=== PATIENT | female | born 1950 | race Caucasian/White ===

== ENCOUNTER 2018-04-29 20:11 | Emergency (ER) | payer MEDICARE ==
--- NOTE | 2018-04-29 21:40 | ED ---
General Adult HPI - General Chief complaint: Extremity Problem,Nontraumatic Stated complaint: r arm tingling and numbness x 3 days Source: patient Mode of arrival: ambulatory Limitations: no limitations - History of Present Illness Initial comments: Dictation was produced using [employer] dictation software. please excuse any grammatical, word or spelling errors. Chief Complaint: 68-year-old male who was diagnosed with cervical radiculopathy 2 weeks ago presents with right upper extremity pain History of Present Illness: And is a 68-year-old female past medical history dyslipidemia, hypertension presents with right arm pain. Patient was evaluated 2 weeks ago at an urgent care she was diagnosed with cervical radiculopathy however was having persistent pain despite treatment with Flexeril and corticosteroids. She is given referral to orthopedic surgery. Patient normally resides in [place]. She presents today asking for stronger pain medication. Patient reports that her upper extremity symptoms are only with certain neck movements. Denies any history of stroke. The ROS documented in this emergency department record has been reviewed and confirmed by me. Those systems with pertinent positive or negative responses have been documented in the HPI. All other systems are other negative and/or noncontributory. - Related Data Home Medications Medication Instructions Recorded Confirmed Aspirin EC [Ecotrin Low Dose] 81 mg PO DAILY 04/29/18 04/29/18 Atenolol [Tenormin] 50 mg PO DAILY 04/29/18 04/29/18 Atorvastatin [Lipitor] 10 mg PO DAILY 04/29/18 04/29/18 Cholecalciferol [Vitamin D3] 1,000 unit PO DAILY 04/29/18 04/29/18 Cyclobenzaprine [Flexeril] 10 mg PO TID PRN 04/29/18 04/29/18 Triamterene/Hydrochlorothiazid 1 tab PO DAILY 04/29/18 04/29/18 [Triamterene-Hctz 75-50 mg Tab] methylPREDNISolone Dose Pack See Taper PO DIRECTED 04/29/18 04/29/18 [Medrol Dose Pack] Previous Rx's Medication Instructions Recorded HYDROcodone/APAP 5-325MG [[place] 5] 1 each PO Q6HR PRN #8 tab 04/29/18 Allergies Allergy/AdvReac Type Severity Reaction Status Date / Time Sulfa (Sulfonamide Allergy Rash/Hives Verified 04/29/18 20:52 Antibiotics) RUBBER Allergy Rash/Hives Uncoded 04/29/18 20:52 Review of Systems ROS Statement: Those systems with pertinent positive or pertinent negative responses have been documented in the HPI. ROS Other: All systems not noted in ROS Statement are negative. Past Medical History Past Medical History: Hyperlipidemia, Hypertension History of Any Multi-Drug Resistant Organisms: None Reported Past Surgical History: Cholecystectomy, Hysterectomy Past Psychological History: No Psychological Hx Reported Smoking Status: Never smoker Past Alcohol Use History: Occasional Past Drug Use History: None Reported General Exam - General Exam Comments Initial Comments: PHYSICAL EXAM: General Impression: Alert and oriented x3, not in acute distress HEENT: Normocephalic atraumatic, extra-ocular movements intact, pupils equal and reactive to light bilaterally, mucous membranes moist. Cardiovascular: Heart regular rate and rhythm, S1&S2 audible, no murmurs, rubs or gallops Chest: Lungs clear to auscultation bilaterally, no rhonchi, no wheeze, no rales Abdomen: Bowel sounds present, abdomen soft, non-tender, non-distended, no organomegaly Musculoskeletal: Pulses present and equal in all extremities, no peripheral edema Motor: Power 5/5 bilaterally, no focal deficits noted Neurological: CN II-XII grossly intact, no focal motor or sensory deficits noted Skin: Intact with no visualized rashes Psych: Normal affect and mood Limitations: no limitations Course Vital Signs 04/29/18 20:16 Temperature 98.1 F Pulse Rate 78 Respiratory 18 Rate Blood Pressure 161/83 O2 Sat by Pulse 98 Oximetry Medical Decision Making - Medical Decision Making ED course: 68 year female presents with request for better pain control after being recently diagnosed with cervical radiculopathy. Vital signs upon arrival are within acceptable limits. Patient states that her symptoms began 2 weeks. Discussed with patient that there is some consideration that her symptoms could reflect a stroke. She states she did not want to be worked up for that at the moment. Patient had a cervical spine x- ray performed 2 weeks ago she brought back the results. Patient denies wanting to be worked up for more given that she normally resides in [place] and more extensive testing would require marked pocket pain. Pain is slightly reproduced with right neck side bending and right rotation. Patient does not appear to be in acute distress at this time. She requests when necessary medications for severe pain. Discussed with patient that I can only give her less than 3 supply for narcotics and there is no guarantee that these pain medications worked. She does not want to be CT of her C-spine or be worked up with any further imaging. Patient does not appear to be in acute distress. Physical examination is otherwise fairly benign. Patient given short supply of [place]. She is urged to return back to [place] for further management of radiculopathy. Patient understandable agreeable to this plan. Disposition Clinical Impression: Cervical radiculopathy Disposition: HOME SELF-CARE Condition: Fair Prescriptions: HYDROcodone/APAP 5-325MG [[place] 5] 1 each PO Q6HR PRN #8 tab PRN Reason: Pain Is patient prescribed a controlled substance at d/c from ED?: Yes If prescribed controlled substance>3 days was MAPS reviewed?: Prescribed <3 Days Referrals: Nonstaff,Physician [Primary Care Provider] - 1-2 days Time of Disposition: 21:40
[2018-04-29 22:44] VITALS: BP 165/65; PULSE 75; RESP 20; TEMP 97.3
== END 2018-04-29 21:47 | disposition home or self-care (01) ==
LOC: EC 20:11
DX: M54.12 Radiculopathy, cervical region (principal); E78.5 Hyperlipidemia, unspecified; I10 Essential (primary) hypertension; Z79.82 Long term (current) use of aspirin; Z79.52 Long term (current) use of systemic steroids; Z79.899 Other long term (current) drug therapy; Z88.2 Allergy status to sulfonamides; Z91.048 Other nonmedicinal substance allergy status
CPT/HCPCS: 99283

== ENCOUNTER → 2020-04-11 | Outpatient (CLI) | payer MEDICARE ==
--- NOTE | 2020-04-11 15:49 | BD ---
EXAMINATION TYPE: Axial Bone Density DATE OF EXAM: 04/11/2020 COMPARISON: NONE CLINICAL HISTORY: 70-year-old female postmenopausal screening Height: 5 FT 1 1/2 IN Weight: 170 FRAX RISK QUESTIONS: Alcohol (3 or more units per day): NO Family History (Parent hip fracture): NO Glucocorticoids (More than 3mos): NO (Ex: prednisone, prednisolone, methylprednisolone, dexamethasone, and hydrocortisone). History of Fracture in Adulthood: YES Secondary Osteoporosis: 1. Type 1 Diabetes: NO 2. Hyperthyroidism: NO 3. Menopause before 45: YES 4. Malnutrition: NO 5. Chronic liver disease: NO Rheumatoid Arthritis: NO Current Tobacco Use: NO RISK FACTORS HISTORY OF: Surgery to Spine/Hip(right/left)/Wrist (right/left): C SPINE SURG When: 2019 Active: NO Postmenopausal woman: TOTAL HYST AGE 38 Take estrogen and/or progesterone medications: TOOK HRT 36-50 NO LONGER MEDICATIONS: Additional Medications: INSULIN, LIPITOR, ATENOLOL, FARSEGA, METFORMIN,VIT D3 . ASPIRIN Additional History: EXAM MEASUREMENTS: Bone mineral densitometry was performed using the [employer] System. Bone mineral density as measured about the Lumbar spine is: ----- L1-L4(G/cm2): 1.289 T Score Values are as follows: ----- L2: 0.5 ----- L3: 0.8 ----- L4: 0.4 ----- L1-L4: 0.9 BASELINE Bone mineral density about the R hip (g/cm2): 0.786 Bone mineral density about the L hip (g/cm2): 0.800 T Score values are as follows: -----R Neck: -1.8 -----L Neck: -1.7 -----R Total: -0.7 -----L Total: -0.6 BASELINE IMPRESSION: Osteopenia (T Score between -2.5 and -1). There is slightly increased risk of fracture and the patient may be considered for treatment. Re-Screen 2-5 years. NOTE: T-SCORE=SD OF THE YOUNG ADULT MEAN.
--- NOTE | 2020-04-12 08:35 | MM ---
Reason for exam: screening (asymptomatic). Last mammogram was performed 5 years and 4 months ago. History: Patient is postmenopausal. Family history of breast cancer in paternal grandmother. Took estrogen for 14 years beginning at age 38. Physical Findings: A clinical breast exam by your physician is recommended on an annual basis and results should be correlated with mammographic findings. MG 3D Screening Mammo W/Cad Bilateral CC and MLO view(s) were taken. Prior study comparison: December 16, 2014, mammogram, performed at [place]. There are scattered fibroglandular densities. There are benign appearing round calcifications in the left breast. Asymmetric breast tissue right breast, stable. There is no discrete abnormality. ASSESSMENT: Benign, BI-RAD 2 RECOMMENDATION: Routine screening mammogram of both breasts in 1 year.
== END | disposition home or self-care (01) ==
LOC: RADBDWWP 10:33
PROVIDERS: ATTEND Family Medicine
DX: Z12.31 Encounter for screening mammogram for malignant neoplasm of breast (principal); N95.1 Menopausal and female climacteric states; M81.8 Other osteoporosis without current pathological fracture
CPT/HCPCS: 77063; 77067; 77080

== ENCOUNTER → 2023-02-28 | Outpatient (CLI) | payer MEDICARE ==
--- NOTE | 2023-03-03 18:55 | MM ---
Reason for Exam: Screening (asymptomatic). Last mammogram was performed 2 year(s) and 11 month(s) ago. Patient History: Menarche at age 16. First Full-Term at age 20. Left ovary removed at age 38. Right ovary removed at age 38. Hysterectomy at age 38. Postmenopausal. Estrogen for 14 years from age 38 until age 52. Paternal grandmother had breast cancer. Risk Values: Karen 5 year model risk: 1.1%. NCI Lifetime model risk: 3.3%. Prior Study Comparison: 12/16/2014 Screening Mammogram, [place]. 04/11/2020 Bilateral Screening Mammogram, [facility]. Tissue Density: There are scattered fibroglandular densities. Findings: Analyzed By CAD. Pattern appears symmetrical and stable. No significant interval change. No suspicious groups of microcalcifications, spiculated or lobular masses, architectural distortion or other secondary signs of malignancy are mammographically apparent. Overall Assessment: Benign, BI-RAD 2 Management: Screening Mammogram of both breasts in 1 year. A negative mammogram report should not preclude additional follow up of suspicious palpable abnormalities. Patient should continue monthly self breast exam. A clinical breast exam by your physician is recommended on an annual basis and results should be correlated with mammographic findings. Electronically signed and approved by: Patrick Holt D.O. Radiologis
== END | disposition home or self-care (01) ==
LOC: RADMAMWWP 11:11
PROVIDERS: ATTEND Family Medicine
DX: Z12.31 Encounter for screening mammogram for malignant neoplasm of breast (principal); Z80.3 Family history of malignant neoplasm of breast; Z78.0 Asymptomatic menopausal state
CPT/HCPCS: 77063; 77067

== ENCOUNTER → 2023-09-09 | Outpatient (CLI) | payer MEDICARE ==
--- NOTE | 2023-09-16 01:52 | CT ---
EXAMINATION TYPE: CT abdomen pelvis wo con CT DLP: 907 mGycm, Automated exposure control for dose reduction was used. DATE OF EXAM: 09/09/2023 11:18 AM COMPARISON: CLINICAL INDICATION:Female, 73 years old with history of R10.30 lower abdominal pain; lower abdominal pain and cramping TECHNIQUE: Axial CT of the abdomen and pelvis. Sagittal and coronal reformats were created on a [employer] workstation. Contrast used: mL of , (none if empty) Oral contrast used: without Oral Contrast (none if empty) FINDINGS: Exam is limited by lack of contrast. LOWER CHEST: Mild dependent atelectasis. Heart size is normal with prominent pericardial fat noted. ABDOMEN LIVER: Unremarkable GALLBLADDER AND BILE DUCTS: Gallbladder is not seen, likely absent. No biliary dilatation is suggeste d. PANCREAS: Mild fatty infiltration without acute finding SPLEEN: Unremarkable. ADRENAL GLANDS: Mildly thickened, may be seen with hyperplasia.. KIDNEYS AND URETERS: Trace bilateral perinephric stranding. Relatively low-attenuation 1.4 cm rounded lesion in the upper pole left kidney is not fully characterized but has the appearance of a cyst. No sizable renal calculi bilaterally. No ureteral calculi or hydronephrosis. Pelvic phleboliths are not ed. PELVIS BLADDER: Unremarkable REPRODUCTIVE: The uterus appears absent, correlate for hysterectomy. Ovaries are not seen, could of been removed. No evidence of pelvic mass. ABDOMEN & PELVIS STOMACH AND BOWEL: Stomach and small bowel are nondistended, no evidence of obstruction. Appendix i s not identified with certainty, however there is no inflammatory process seen in the RLQ. Mural fat deposition in the ascending colon may be sequela of previous inflammatory process. There are numerous diverticula seen throughout the colon. Mild strandiness of the pericolonic fat in the sigmoid region is present, nonfocal. PERITONEUM/RETROPERITONEUM: No evidence of pneumoperitoneum or free fluid. VASCULATURE: Moderate atherosclerotic calcifications are present throughout the abdominal aorta and i ts branches. No evidence of aortic aneurysm. LYMPH NODES: No gross evidence for lymphadenopathy. SOFT TISSUE/ABDOMINAL WALL: Postoperative changes with surgical material along the right anterior abd ominal wall. Fat-containing 2.6 x 1.7 cm hernia in the right paraumbilical region with a 0.8 cm neck. MUSCULOSKELETAL: Mild/moderate diffuse degenerative changes. Mild retrolisthesis L5 on S1. This is li ariela at least mild to moderate spinal canal stenosis and moderate bilateral neural foraminal stenoses L5-S1. No clearly acute bony abnormality. IMPRESSION: 1. Limited unenhanced study. 2. No evidence of urinary tract calculi or hydronephrosis. 3. Numerous colonic diverticula. Mild nonspecific pericolonic fat stranding in the proximal sigmoid region could be seen with diverticulitis or focal colitis. Please correlate and follow-up clinically.
== END | disposition home or self-care (01) ==
LOC: RADCTMAIN 10:35
PROVIDERS: ATTEND Family Medicine
DX: K57.30 Diverticulosis of large intestine without perforation or abscess without bleeding (principal); R93.5 Abnormal findings on diagnostic imaging of other abdominal regions, including retroperitoneum
CPT/HCPCS: 74176

== ENCOUNTER 2025-02-25 17:19 | Inpatient (IN) | payer MEDICARE ==
[2025-02-25 17:46] LABS: Appearance,Urine Clear (Clear); Bilirubin,Urine Negative (Negative); Blood,Urine Negative (Negative); Color,Urine Colorless; Glucose,Urine (UA) Negative (Negative); Ketones,Urine Negative (Negative); Leukocyte Esterase,Urine Negative (Negative); Nitrite,Urine Negative (Negative); PH, Urine 6.5 (5.0-8.0); Protein,Urine Negative (Negative); Specific Gravity,Urine 1.003 (1.001-1.035); Urobilinogen,Urine <2.0 mg/dL (<2.0)
--- NOTE | 2025-02-25 18:37 | ED ---
Back Pain HPI - General Chief Complaint: Back Pain/Injury Stated Complaint: urogenital, back pain Time Seen by Provider: 02/25/25 18:35 Source: patient, RN notes reviewed Limitations: no limitations - History of Present Illness Initial Comments: 74-year-old female presenting for bilateral flank pain x 2 days with intermittent dizziness. States she recently was diagnosed with diverticulitis with an abscess and was on 2 antibiotics, metronidazole and another 1 that she cannot remember the name of. States she recently finished those and abdominal pain has improved however she does reports bilateral flank pain and dizziness if she stands for a long period of time. States she wants to get her kidneys checked through her blood today. Denies chest pain, shortness of breath, fevers, abdominal pain, urinary symptoms. Denies cardiac or pulmonary history. Denies renal disease. - Related Data Home Medications Medication Instructions Recorded Confirmed Aspirin EC [Ecotrin Low Dose] 81 mg PO DAILY 04/29/18 02/25/25 Atorvastatin [Lipitor] 20 mg PO HS 02/25/25 02/25/25 Cholecalciferol (Vitamin D3) 50 mcg PO HS 02/25/25 02/25/25 [Vitamin D3 (50 Mcg = 2000 Iu)] Ezetimibe [Zetia] 10 mg PO HS 02/25/25 02/25/25 Folic Acid 1 mg PO DAILY 02/25/25 02/25/25 Losartan [Cozaar] 25 mg PO DAILY 02/25/25 02/25/25 Triamterene/Hydrochlorothiazid 1 tab PO DAILY 02/25/25 02/25/25 [Triamterene-Hctz 37.5-25 mg Tb] atenoloL [Tenormin] 25 mg PO DAILY 02/25/25 02/25/25 Allergies Allergy/AdvReac Type Severity Reaction Status Date / Time Sulfa (Sulfonamide Allergy Rash/Hives Verified 02/25/25 20:43 Antibiotics) RUBBER Allergy Rash/Hives Uncoded 04/29/18 20:52 Review of Systems ROS Statement: Those systems with pertinent positive or pertinent negative responses have been documented in the HPI. ROS Other: All systems not noted in ROS Statement are negative. Past Medical History Past Medical History: Hyperlipidemia, Hypertension History of Any Multi-Drug Resistant Organisms: None Reported Past Surgical History: Cholecystectomy, Hysterectomy Past Psychological History: No Psychological Hx Reported Past Alcohol Use History: Occasional Past Drug Use History: None Reported General Exam Limitations: no limitations General appearance: alert, in no apparent distress Head exam: Present: atraumatic, normocephalic, normal inspection Respiratory exam: Present: normal lung sounds bilaterally. Absent: respiratory distress, wheezes, rales, rhonchi, stridor Cardiovascular Exam: Present: regular rate, normal rhythm, normal heart sounds. Absent: systolic murmur, diastolic murmur, rubs, gallop, clicks GI/Abdominal exam: Present: soft, normal bowel sounds. Absent: distended, tenderness, guarding, rebound, rigid Back exam: Absent: CVA tenderness (R), CVA tenderness (L) Neurological exam: Present: alert, oriented X3 Psychiatric exam: Present: normal affect, normal mood Skin exam: Present: warm, dry, intact, normal color. Absent: rash Course Vital Signs 02/25/25 02/25/25 02/25/25 17:22 21:21 22:21 Temperature 97.8 F 98.1 F Pulse Rate 72 67 69 Respiratory 16 16 16 Rate Blood Pressure 144/76 140/75 144/65 O2 Sat by Pulse 98 98 99 Oximetry Medical Decision Making - Medical Decision Making Was pt. sent in by a medical professional or institution (, PA, LEAVE COORDINATOR, urgent care, hospital, or prison...) When possible be specific @ -No Did you speak to anyone other than the patient for history (EMS, parent, family, police, friend...)? What history was obtained from this source @ -No Did you review nursing and triage notes (agree or disagree)? Why? @ -I reviewed and agree with nursing and triage notes Were old charts reviewed (outside hosp., previous admission, EMS record, old EKG, old radiological studies, urgent care reports/EKG's, prison records)? Report findings @ -No old charts were reviewed Differential Diagnosis (chest pain, altered mental status, abdominal pain women, abdominal pain men, vaginal bleeding, weakness, fever, dyspnea, syncope, headache, dizziness, GI bleed, back pain, seizure, CVA, palpatations, mental health, musculoskeletal)? @ -Differential Abdominal Pain Women: Appendicitis, Cholecystitis, diverticulosis, ischemic bowel, pancreatitis, hepatitis, UTI, gastroenteritis, AAA, incarcerated hernia, bowel obstruction, constipation, inflammatory bowel, hepatitis, peptic ulcer disease, splenic infarction, perforated viscus, vulvitis, ovarian torsion, PID, kidney stone, placenta abruption, this is not meant to be an all-inclusive list EKG interpreted by me (3pts min.). @ -As above X-rays interpreted by me (1pt min.). @ -None done CT interpreted by me (1pt min.). @ -None done U/S interpreted by me (1pt. min.). @ -None done What testing was considered but not performed or refused? (CT, X-rays, U/S, labs)? Why? @ -None What meds were considered but not given or refused? Why? @ -None Did you discuss the management of the patient with other professionals (professionals i.e. , PA, LEAVE COORDINATOR, lab, RT, psych nurse, oncology social work, director emergency department, teacher, consumer safety officer, manager of case)? Give summary @ -I spoke with Dr. Hartman who accepts admission for hyponatremia. I then notified Dr. Antoine on-call farm crew leader who agrees with plan of care and requests repeat BMP at 2300 Was smoking cessation discussed for >3mins.? @ -No Was critical care preformed (if so, how long)? @ -No Were there social determinants of health that impacted care today? How? (Homelessness, low income, unemployed, alcoholism, drug addiction, t ransportation, low edu. Level, literacy, decrease access to med. care, half-way, rehab)? @ -No Was there de-escalation of care discussed even if they declined (Discuss DNR or withdrawal of care, Hospice)? DNR status @ -No What co-morbidities impacted this encounter? (DM, HTN, Smoking, COPD, CAD, Cancer, CVA, ARF, Chemo, Hep., AIDS, mental health diagnosis, sleep apnea, morbid obesity)? @ -None Was patient admitted / discharged? Hospital course, mention meds given and route, prescriptions, significant lab abnormalities, going to OR and other pertinent info. @ -Admitted. 74-year-old female presenting for bilateral flank pain with intermittent dizziness x 2 days. Patient is currently asymptomatic. Alert and oriented x 3. Lab work remarkable for hyponatremia of 113. Urinalysis unremarkable. Urine sodium and urine osmolality sent. Repeat BMP shows sodium of 114. Patient was started on sodium chloride IV fluids and will be admitted to medicine with nephrology consultation with repeat BMPs every 4 hours. Fluid restriction to 1 L/day. Case was discussed with my ED attending Dr. Patterson. Undiagnosed new problem with uncertain prognosis? @ -No Drug Therapy requiring intensive monitoring for toxicity (Heparin, Nitro, Insulin, Cardizem)? @ -No Were any procedures done? @ -No Diagnosis/symptom? @ -Hyponatremia Acute, or Chronic, or Acute on Chronic? @ -Acute Uncomplicated (without systemic symptoms) or Complicated (systemic symptoms)? @ -Complicated Side effects of treatment? @ -No Exacerbation, Progression, or Severe Exacerbation? @ -No Poses a threat to life or bodily function? How? (Chest pain, USA, CT, pneumonia, PE, COPD, DKA, ARF, appy, cholecystitis, CVA, Diverticulitis, Homicidal, Suicidal, threat to staff... and all critical care pts) @ -Yes - Lab Data Result diagrams: 02/25/25 18:50 02/25/25 20:38 Lab Results 02/25/25 02/25/25 02/25/25 Range/Units 17:33 18:50 18:50 WBC 7.84 (4.50-10.00) 10*3/uL RBC 4.28 (4.10-5.20) 10*6/uL Hgb 12.5 (12.0-15.0) g/dL Hct 33.2 L (37.2-46.3) % MCV 77.6 L (80.0-97.0) fL MCH 29.2 (27.0-32.0) pg MCHC 37.7 H (32.0-37.0) g/dL Plt Count 430 (140-440) 10*3/uL MPV 10.3 (9.5-12.2) fL Immature Gran % (Auto) 0.3 % Neutrophils % 73.9 % Lymphocytes % 16.2 % Monocytes % 8.8 % Eosinophils % 0.4 % Basophils % 0.4 % Immature Gran # 0.02 (0.00-0.04) 10*3/uL Neutrophils # 5.80 (1.80-7.70) 10*3/uL Lymphocytes # 1.27 (0.90-5.00) 10*3/uL Monocytes # 0.69 (0.20-1.00) 10*3/uL Eosinophils # 0.03 L (0.04-0.35) 10*3/uL Basophils # 0.03 (0.00-0.10) 10*3/uL Sodium 113 L* (137-145) mmol/L Potassium 4.4 (3.5-5.1) mmol/L Chloride 80 L (98-107) mmol/L Carbon Dioxide 22 (22-30) mmol/L Anion Gap 11 mmol/L BUN 19 H (7-17) mg/dL Creatinine 0.92 (0.52-1.04) mg/dL Est GFR (CKD-EPI)AfAm 72 (>60 ml/min/1.73 sqM) Est GFR (CKD-EPI)NonAf 63 (>60 ml/min/1.73 sqM) Glucose 101 H (74-99) mg/dL Calcium 10.0 (8.4-10.2) mg/dL Total Bilirubin 1.1 (0.2-1.3) mg/dL AST 35 (14-36) U/L ALT 23 (4-34) U/L Alkaline Phosphatase 67 (38-126) U/L Total Protein 6.9 (6.3-8.2) g/dL Albumin 4.5 (3.5-5.0) g/dL Urine Color Colorless Urine Appearance Clear (Clear) Urine pH 6.5 (5.0-8.0) Ur Specific [place] 1.003 (1.001-1.035) Urine Protein Negative (Negative) Urine Glucose (UA) Negative (Negative) Urine Ketones Negative (Negative) Urine Blood Negative (Negative) Urine Nitrite Negative (Negative) Urine Bilirubin Negative (Negative) Urine Urobilinogen <2.0 (<2.0) mg/dL Ur Leukocyte Esterase Negative (Negative) 02/25/25 Range/Units 20:38 WBC (4.50-10.00) 10*3/uL RBC (4.10-5.20) 10*6/uL Hgb (12.0-15.0) g/dL Hct (37.2-46.3) % MCV (80.0-97.0) fL MCH (27.0-32.0) pg MCHC (32.0-37.0) g/dL Plt Count (140-440) 10*3/uL MPV (9.5-12.2) fL Immature Gran % (Auto) % Neutrophils % % Lymphocytes % % Monocytes % % Eosinophils % % Basophils % % Immature Gran # (0.00-0.04) 10*3/uL Neutrophils # (1.80-7.70) 10*3/uL Lymphocytes # (0.90-5.00) 10*3/uL Monocytes # (0.20-1.00) 10*3/uL Eosinophils # (0.04-0.35) 10*3/uL Basophils # (0.00-0.10) 10*3/uL Sodium 114 L* (137-145) mmol/L Potassium 4.5 (3.5-5.1) mmol/L Chloride 78 L (98-107) mmol/L Carbon Dioxide 22 (22-30) mmol/L Anion Gap 14 mmol/L BUN 18 H (7-17) mg/dL Creatinine 0.94 (0.52-1.04) mg/dL Est GFR (CKD-EPI)AfAm 70 (>60 ml/min/1.73 sqM) Est GFR (CKD-EPI)NonAf 61 (>60 ml/min/1.73 sqM) Glucose 95 (74-99) mg/dL Calcium 10.2 (8.4-10.2) mg/dL Total Bilirubin (0.2-1.3) mg/dL AST (14-36) U/L ALT (4-34) U/L Alkaline Phosphatase (38-126) U/L Total Protein (6.3-8.2) g/dL Albumin (3.5-5.0) g/dL Urine Color Urine Appearance (Clear) Urine pH (5.0-8.0) Ur Specific [place] (1.001-1.035) Urine Protein (Negative) Urine Glucose (UA) (Negative) Urine Ketones (Negative) Urine Blood (Negative) Urine Nitrite (Negative) Urine Bilirubin (Negative) Urine Urobilinogen (<2.0) mg/dL Ur Leukocyte Esterase (Negative) - EKG Data -: EKG Interpreted by Me EKG Comments: EKG reveals normal sinus rhythm with first-degree AV block. Ventricular rate 67 bpm, SD interval 270, QRS duration 78, QT/QTc 390/406 Disposition Clinical Impression: Hyponatremia Disposition: ADMITTED IP TO THIS HOSP Time of Disposition: 22:44
[2025-02-25 19:23] LABS: Basophils # (A) 0.03 10*3/uL (0.00-0.10); Basophils % (A) 0.4 %; Eosinophils # (A) 0.03 10*3/uL (0.04-0.35); Eosinophils % (A) 0.4 %; HCT 33.2 % (37.2-46.3); HGB 12.5 g/dL (12.0-15.0); Lymphocytes # (A) 1.27 10*3/uL (0.90-5.00); Lymphocytes % (A) 16.2 %; MCH 29.2 pg (27.0-32.0); MCHC 37.7 g/dL (32.0-37.0); MCV 77.6 fL (80.0-97.0); Mean Platelet Volume 10.3 fL (9.5-12.2); Monocytes # (A) 0.69 10*3/uL (0.20-1.00); Monocytes % (A) 8.8 %; Neutrophils % (A) 73.9 %; Platelet Count 430 10*3/uL (140-440); RBC 4.28 10*6/uL (4.10-5.20); RDW 12.7 % (11.5-14.5); WBC 7.84 10*3/uL (4.50-10.00)
[2025-02-25 19:40] LABS: ALT 23 U/L (4-34); AST 35 U/L (14-36); African American GFR (CKD) 72 (>60 ml/min/1.73 sqM); Albumin 4.5 g/dL (3.5-5.0); Alkaline Phosphatase 67 U/L (38-126); Anion Gap 11 mmol/L; Blood Urea Nitrogen 19 mg/dL (7-17); Carbon Dioxide 22 mmol/L (22-30); Chloride 80 mmol/L (98-107); Glucose 101 mg/dL (74-99); Non-African American GFR(CKD) 63 (>60 ml/min/1.73 sqM); Potassium 4.4 mmol/L (3.5-5.1); Total Bilirubin 1.1 mg/dL (0.2-1.3); Total Protein 6.9 g/dL (6.3-8.2)
[2025-02-25 19:57] LABS: Sodium 113 mmol/L (137-145)
[2025-02-25 21:12] LABS: African American GFR (CKD) 70 (>60 ml/min/1.73 sqM); Anion Gap 14 mmol/L; Blood Urea Nitrogen 18 mg/dL (7-17); Calcium 10.2 mg/dL (8.4-10.2); Carbon Dioxide 22 mmol/L (22-30); Chloride 78 mmol/L (98-107); Glucose 95 mg/dL (74-99); Non-African American GFR(CKD) 61 (>60 ml/min/1.73 sqM); Potassium 4.5 mmol/L (3.5-5.1)
[2025-02-25 21:28] LABS: Sodium 114 mmol/L (137-145)
[2025-02-25] MEDS: SODIUM CHLORIDE 0.9% 1,000 ML IV STA (22:38)
[2025-02-25] MEDS: SODIUM CHLORIDE 0.9% 500 ML 500 ML IV STA (22:39)
[2025-02-25] MEDS ORDERED: ACETAMINOPHEN TAB 325 MG TAB PO PRN (22:40)
[2025-02-25] MEDS ORDERED: NALOXONE 0.4 MG/ML 1 ML VIAL IV PRN (22:40)
--- NOTE | 2025-02-26 13:07 | P.NPCON ---
History of Present Illness - Reason for Consult hyponatremia - History of Present Illness Patient is a 74-year-old female who was admitted to the hospital with complaints of abdominal pain, increased weakness and dizziness. Patient was recently discharged after hospitalization for diverticulitis with abscess formation. She was maintained on antibiotics as outpatient. She was hospitalized at [facility]. No previous history of hyponatremia Patient did report nausea and vomiting. No significant diarrhea. Maintained on thiazide diuretics for hypertension Serum sodium was 113 on admission and patient was given a fluid bolus and started on normal saline. Repeat sodium was 120 this morning Past Medical History Past Medical History: Hyperlipidemia, Hypertension History of Any Multi-Drug Resistant Organisms: None Reported Past Surgical History: Cholecystectomy, Hysterectomy Past Psychological History: No Psychological Hx Reported Past Alcohol Use History: Occasional Past Drug Use History: None Reported Medications and Allergies Home Medications Medication Instructions Recorded Confirmed Type Aspirin EC [Ecotrin Low Dose] 81 mg PO DAILY 04/29/18 02/25/25 History Atorvastatin [Lipitor] 20 mg PO HS 02/25/25 02/25/25 History Cholecalciferol (Vitamin D3) 50 mcg PO HS 02/25/25 02/25/25 History [Vitamin D3 (50 Mcg = 2000 Iu)] Ezetimibe [Zetia] 10 mg PO HS 02/25/25 02/25/25 History Folic Acid 1 mg PO DAILY 02/25/25 02/25/25 History Losartan [Cozaar] 25 mg PO DAILY 02/25/25 02/25/25 History Triamterene/Hydrochlorothiazid 1 tab PO DAILY 02/25/25 02/25/25 History [Triamterene-Hctz 37.5-25 mg Tb] atenoloL [Tenormin] 25 mg PO DAILY 02/25/25 02/25/25 History Allergies Allergy/AdvReac Type Severity Reaction Status Date / Time Sulfa (Sulfonamide Allergy Rash/Hives Verified 02/25/25 20:43 Antibiotics) RUBBER Allergy Rash/Hives Uncoded 04/29/18 20:52 Physical Exam Vitals: Vital Signs Temp Pulse Pulse Resp BP BP Pulse Ox 02/26/25 08:00 65 18 139/72 99 02/26/25 05:27 98.4 F 69 16 135/61 98 02/26/25 02:56 97.9 F 63 16 140/61 99 02/25/25 22:21 98.1 F 69 16 144/65 99 02/25/25 21:21 67 16 140/75 98 02/25/25 17:22 97.8 F 72 16 144/76 98 Intake and Output 02/25/25 02/26/25 02/26/25 22:59 06:59 14:59 Intake Total 270 Output Total 190 100 Balance -190 170 Intake: Oral 270 Output: Urine 190 100 Other: # Voids 1 1 Weight 65.771 kg Patient is awake, comfortable, no acute distress Examination of the heart S1 and S2 Examination of the lungs bilateral breath sounds are heard Abdomen is soft nontender Examination of lower extremities shows no evidence of edema 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 Hypovolemic hyponatremia, improving with normal saline infusion. Patient was also maintained on thiazide diuretics at home, currently on hold. 2. Hypertension, maintained on Cozaar, Tenormin and Dyazide at home 3. Recent abdominal abscess from diverticulitis with aspiration of fluid and maintained on outpatient antibiotics prior to admission 4. Dyslipidemia maintained on Lipitor and Zetia Plan: Continue with normal saline Hold thiazide diuretics for now Continue to monitor serum sodium levels Check chest x-ray DC renal diet Thank you for the consultation. We will continue to follow the patient with you during her hospitalization
[2025-02-26] MEDS: SODIUM CHLORIDE 0.9% 1,000 ML IV SCH ×2 (20:14→23:28)
--- NOTE | 2025-02-26 21:26 | P.HPIM ---
History of Present Illness H&P Date: 02/26/25 Chief Complaint: Dizziness Patient is a 74-year-old female with a past medical history of hypertension, hyperlipidemia presents to ER with complaints of dizziness and bilateral flank pain for the past 2 days. Patient was recently diagnosed with diverticulitis with an abscess at [facility] and was on antibiotics which he recently completed. Abdominal pain improved otherwise did report bilateral flank pain and dizziness when she stands for long time. Denied any nausea vomiting or diarrhea. Otherwise patient denied any chest pain or shortness of breath no fever no chills. Denied any dysuria or hematuria. No cough or sputum production. Patient is on hydrochlorothiazide/triamterene, atenolol and Cozaar for blood pressure. On admission sodium level found to be 113. Laboratory data showed WBC 7.8 hemoglobin 12.5 MCV 77.6 and platelets 430, sodium 113 potassium 4.4 chloride 80 bicarb is 22 BUN 19 and creatinine 0.19 blood sugar 101 liver enzymes are not elevated. Urinalysis is negative for infection. Urine osmolality 140 and random sodium level is 24. Sodium level improved to 120 this morning with normal saline. Review of Systems Constitutional: Patient denies any fever or chills . No generalized weakness or weight loss. Abdomen: Patient denied nausea vomiting and diarrhea and abdominal pain. Cardiovascular: Patient denies any chest pain or short of breath no palpitations. Respiratory: patient denied any cough or sputum production. No shortness of breath Neurologic: Patient denied any numbness or tingling. no headache. Musculoskeletal: Patient denies any complaints of joint swelling or deformity. Skin: Negative Psychiatric: Negative Endocrine: No heat or cold intolerance. No recent weight gain. Genitourinary: No dysuria or hematuria. All other 14 point ROS negative except the above Past Medical History Past Medical History: Hyperlipidemia, Hypertension History of Any Multi-Drug Resistant Organisms: None Reported Past Surgical History: Cholecystectomy, Hysterectomy Past Psychological History: No Psychological Hx Reported Past Alcohol Use History: Occasional Past Drug Use History: None Reported Medications and Allergies Home Medications Medication Instructions Recorded Confirmed Type Aspirin EC [Ecotrin Low Dose] 81 mg PO DAILY 04/29/18 02/25/25 History Atorvastatin [Lipitor] 20 mg PO HS 02/25/25 02/25/25 History Cholecalciferol (Vitamin D3) 50 mcg PO HS 02/25/25 02/25/25 History [Vitamin D3 (50 Mcg = 2000 Iu)] Ezetimibe [Zetia] 10 mg PO HS 02/25/25 02/25/25 History Folic Acid 1 mg PO DAILY 02/25/25 02/25/25 History Losartan [Cozaar] 25 mg PO DAILY 02/25/25 02/25/25 History Triamterene/Hydrochlorothiazid 1 tab PO DAILY 02/25/25 02/25/25 History [Triamterene-Hctz 37.5-25 mg Tb] atenoloL [Tenormin] 25 mg PO DAILY 02/25/25 02/25/25 History Allergies Allergy/AdvReac Type Severity Reaction Status Date / Time Sulfa (Sulfonamide Allergy Rash/Hives Verified 02/25/25 20:43 Antibiotics) RUBBER Allergy Rash/Hives Uncoded 04/29/18 20:52 Physical Exam Vitals: Vital Signs Temp Pulse Pulse Resp BP BP Pulse Ox 02/26/25 20:16 98.2 F 76 16 163/69 98 02/26/25 15:41 80 16 142/58 98 02/26/25 12:00 98 F 76 16 136/64 98 02/26/25 08:00 65 18 139/72 99 02/26/25 05:27 98.4 F 69 16 135/61 98 02/26/25 02:56 97.9 F 63 16 140/61 99 02/25/25 22:21 98.1 F 69 16 144/65 99 02/25/25 21:21 67 16 140/75 98 Intake and Output 02/26/25 02/26/25 02/26/25 06:59 14:59 22:59 Intake Total 270 270 Output Total 190 100 35 Balance -190 170 235 Intake: Oral 270 270 Output: Urine 190 100 35 Other: # Voids 1 2 1 PHYSICAL EXAMINATION: Patient is lying in the bed comfortably, no acute distress, awake alert and oriented.. HEENT: Normocephalic. Neck is supple. Pupils reactive. Nostrils clear. Oral cavity is moist. Neck reveals no JVD, carotid bruits, or thyromegaly. CHEST EXAMINATION: Trachea is central. Symmetrical expansion. Lung lux clear to auscultation and percussion. CARDIAC: Normal S1, S2 with no gallops. No murmurs ABDOMEN: Soft. Bowel sounds normal. No organomegaly. No abdominal bruits. Extremities: reveal no edema. No clubbing or cyanosis Neurologically awake, alert, oriented x3 with well-coordinated movements. No focal deficits noted Skin: No rash or skin lesions. Psychiatric: Coperative. Nonsuicidal Musculoskeletal: No joint swelling or deformity. Normal range of motion. Results CBC & Chem 7: 02/25/25 18:50 02/26/25 20:31 Labs: Abnormal Lab Results - Last 24 Hours (Table) 02/25/25 02/25/25 02/25/25 Range/Units 17:33 17:33 20:38 Sodium 114 L* (137-145) mmol/L Chloride 78 L (98-107) mmol/L BUN 18 H (7-17) mg/dL Urine Osmolality 140 L (400-1100) mOsm/kg Ur Random Sodium 24 L (40-220) mmol/L 02/25/25 02/26/25 02/26/25 Range/Units 23:21 06:23 11:50 Sodium 115 L* 120 L 123 L (137-145) mmol/L Chloride (98-107) mmol/L BUN (7-17) mg/dL Urine Osmolality (400-1100) mOsm/kg Ur Random Sodium (40-220) mmol/L 02/26/25 02/26/25 02/26/25 Range/Units 15:41 19:21 20:31 Sodium 126 L 113 L* 127 L (137-145) mmol/L Chloride (98-107) mmol/L BUN (7-17) mg/dL Urine Osmolality (400-1100) mOsm/kg Ur Random Sodium (40-220) mmol/L Thrombosis Risk Factor Assmnt - DVT/VTE Prophylaxis DVT/VTE Prophylaxis: Pharmacologic Prophylaxis ordered Assessment and Plan Assessment: Hypovolemic hyponatremia likely due to thiazide diuretics at home. Sodium level was 113 on admission Hypertension. Patient is on atenolol, Cozaar and hydrochlorothiazide/triamterene Recent diverticulitis with abscess completed antibiotic course Hyperlipidemia DVT prophylaxis heparin subcu Plan: Patient will be continued on normal saline and monitor sodium level. Hydrochlorothiazide/triamterene is on hold. Continue with other blood pressure medications and titrate dose as needed. Encourage oral diet. Continue to follow closely. Chest x-ray was ordered.
[2025-02-26] MEDS: LOSARTAN 25 MG TAB PO SCH (21:44)
[2025-02-27 09:20] LABS: Blood Urea Nitrogen 14.8 mg/dL (9.0-27.0); Calcium 9.6 mg/dL (8.7-10.3); Carbon Dioxide 20.7 mmol/L (21.6-31.8); Chloride 95 mmol/L (96-109); Glucose 66 mg/dL (70-110); Potassium 4.3 mmol/L (3.5-5.5); Sodium 130 mmol/L (135-145)
[2025-02-27 09:58] LABS: Basophils # (A) 0.06 X 10*3/uL (0.00-0.10); Basophils % (A) 0.8 %; Eosinophils # (A) 0.09 X 10*3/uL (0.04-0.35); Eosinophils % (A) 1.3 %; HCT 33.4 % (37.2-46.3); HGB 11.9 g/dL (12.0-15.0); Lymphocytes # (A) 1.96 X 10*3/uL (0.90-5.00); Lymphocytes % (A) 27.8 %; MCH 28.7 pg (27.0-32.0); MCHC 35.6 g/dL (32.0-37.0); MCV 80.7 FL (80.0-97.0); Mean Platelet Volume 10.2 FL (9.5-12.2); Monocytes % (A) 9.9 %; NRBC Per 100 WBC 0 X 10*3/uL (0.00-0.01); Neutrophils # (A) 4.22 X 10*3/uL (1.80-7.70); Neutrophils % (A) 59.8 %; Platelet Count 442 X 10*3/uL (140-440); RBC 4.14 X 10*6/uL (4.10-5.20); RDW 13.5 % (11.5-14.5); WBC 7.06 X 10*3/uL (4.50-10.00)
[2025-02-27] MEDS: atenoloL 25 MG TAB PO SCH (10:46)
[2025-02-27] MEDS: ASPIRIN 81 MG PO SCH (10:46)
[2025-02-27] MEDS: FOLIC ACID 1 MG TAB PO SCH (10:46)
[2025-02-27 11:54] LABS: Glucose,Whole Blood 113 mg/dL (70-110)
--- NOTE | 2025-02-27 13:43 | P.PN ---
Subjective Patient is seen for follow-up for hyponatremia which is hypovolemic and improving with normal saline. Serum sodium had improved to 126 and the neck sodium was reported as 113 which was an error as repeat draw showed it to be 127. Currently maintained on normal saline at 50 cc an hour. Serum sodium is 129 today. No significant complaints Objective - Vital Signs Vital signs: Vital Signs Temp 97.8 F 02/27/25 08:35 Pulse 75 02/27/25 08:35 Resp 18 02/27/25 08:35 BP 112/67 02/27/25 08:35 Pulse Ox 99 02/27/25 08:35 FiO2 Intake & Output 02/26/25 02/27/25 02/27/25 18:59 06:59 18:59 Intake Total 270 270 Output Total 100 85 Balance 170 185 Intake: Oral 270 270 Output: Urine 100 85 Other: # Voids 2 1 1 # Bowel Movements 1 - Exam Patient is awake, comfortable, no acute distress Examination of the heart S1 and S2 Examination of the lungs bilateral breath sounds are heard Abdomen is soft nontender Examination of lower extremities shows no evidence of edema 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 - Labs CBC & Chem 7: 02/27/25 05:51 02/27/25 12:25 Labs: Abnormal Lab Results - Last 24 Hours (Table) 02/26/25 02/26/25 02/26/25 Range/Units 15:41 19:21 20:31 Hgb (12.0-15.0) g/dL Hct (37.2-46.3) % Plt Count (140-440) X 10*3/uL Sodium 126 L 113 L* 127 L (137-145) mmol/L Chloride (96-109) mmol/L Carbon Dioxide (21.6-31.8) mmol/L Anion Gap (4.00-12.00) mmol/L Glucose (70-110) mg/dL POC Glucose (mg/dL) (70-110) mg/dL 02/27/25 02/27/25 02/27/25 Range/Units 05:51 05:51 05:51 Hgb 11.9 L (12.0-15.0) g/dL Hct 33.4 L (37.2-46.3) % Plt Count 442 H (140-440) X 10*3/uL Sodium 130 L 128 L (137-145) mmol/L Chloride 95 L (96-109) mmol/L Carbon Dioxide 20.7 L (21.6-31.8) mmol/L Anion Gap 14.30 H (4.00-12.00) mmol/L Glucose 66 L (70-110) mg/dL POC Glucose (mg/dL) (70-110) mg/dL 02/27/25 02/27/25 Range/Units 11:52 12:25 Hgb (12.0-15.0) g/dL Hct (37.2-46.3) % Plt Count (140-440) X 10*3/uL Sodium 129 L (137-145) mmol/L Chloride (96-109) mmol/L Carbon Dioxide (21.6-31.8) mmol/L Anion Gap (4.00-12.00) mmol/L Glucose (70-110) mg/dL POC Glucose (mg/dL) 113 H (70-110) mg/dL Assessment and Plan Assessment: 1. Hypovolemic hyponatremia, improving with normal saline infusion. Patient was also maintained on thiazide diuretics at home, currently on hold. 2. Hypertension, maintained on Cozaar, Tenormin and Dyazide at home 3. Recent abdominal abscess from diverticulitis with aspiration of fluid and maintained on outpatient antibiotics prior to admission 4. Dyslipidemia maintained on Lipitor and Zetia Plan: Continue with normal saline Hold thiazide diuretics for now Continue to monitor serum sodium levels DC renal diet Continue with fluid restriction and recommend high-protein intake
[2025-02-27 16:57] LABS: Glucose,Whole Blood 116 mg/dL (70-110)
[2025-02-27] MEDS: EZETIMIBE 10 MG TAB PO SCH (21:15)
[2025-02-27] MEDS: CHOLECALCIFEROL 25 MCG (1000 IU) TABLET PO SCH (21:15)
[2025-02-27] MEDS: ATORVASTATIN 20 MG TAB PO SCH (21:15)
[2025-02-27 21:16] LABS: Glucose,Whole Blood 96 mg/dL (70-110)
[2025-02-28 06:13] LABS: Glucose,Whole Blood 86 mg/dL (70-110)
[2025-02-28 07:18] VITALS: RESP 18; TEMP 98.1
[2025-02-28 08:51] LABS: African American GFR (CKD) 64 (>60 ml/min/1.73 sqM); Anion Gap 11 mmol/L; Blood Urea Nitrogen 17 mg/dL (7-17); Calcium 9.9 mg/dL (8.4-10.2); Carbon Dioxide 23 mmol/L (22-30); Chloride 100 mmol/L (98-107); Glucose 89 mg/dL (74-99); Non-African American GFR(CKD) 55 (>60 ml/min/1.73 sqM); Potassium 4.1 mmol/L (3.5-5.1); Sodium 134 mmol/L (137-145)
[2025-02-28 11:31] LABS: Glucose,Whole Blood 112 mg/dL (70-110)
[2025-02-28 15:15] VITALS: BP 117/72; PULSE 67
--- NOTE | 2025-02-28 16:12 | P.PN ---
Subjective Patient is seen for follow-up for hyponatremia which is hypovolemic and improving with normal saline. Serum sodium improved to 134. Saline has been discontinued. No significant complaints Objective - Vital Signs Vital signs: Vital Signs Temp 98.1 F 02/28/25 14:00 Pulse 67 02/28/25 14:00 Resp 18 02/28/25 14:00 BP 117/72 02/28/25 14:00 Pulse Ox 98 02/28/25 14:00 FiO2 Intake & Output 02/27/25 02/28/25 02/28/25 18:59 06:59 18:59 Intake Total 780 Balance 780 Weight 65.771 kg 65 kg Intake: Oral 780 Other: Voiding Method Toilet Toilet # Voids 2 2 # Bowel Movements 1 - Exam Patient is awake, comfortable, no acute distress Examination of the heart S1 and S2 Examination of the lungs bilateral breath sounds are heard Abdomen is soft nontender Examination of lower extremities shows no evidence of edema 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 Hypovolemic hyponatremia, improving with normal saline infusion. Patient was also maintained on thiazide diuretics at home, currently on hold. 2. Hypertension, maintained on Cozaar, Tenormin and Dyazide at home 3. Recent abdominal abscess from diverticulitis with aspiration of fluid and maintained on outpatient antibiotics prior to admission 4. Dyslipidemia maintained on Lipitor and Zetia Plan: Continue off of IV fluids Repeat sodium later this afternoon and patient can be discharged if it does not drop Hold thiazide diuretics for now Continue with fluid restriction and recommend high-protein intake
== END 2025-02-28 17:13 | disposition home or self-care (01) | DRG 641 ==
LOC: EC 17:19 → 3SCARD 21:56 → 4SSUR 02-26 16:05
PROVIDERS: ADMIT Internal Medicine; ATTEND Internal Medicine
DX: E87.1 Hypo-osmolality and hyponatremia (principal); E78.5 Hyperlipidemia, unspecified; I10 Essential (primary) hypertension; T50.2X5A Adverse effect of carbonic-anhydrase inhibitors, benzothiadiazides and other diuretics, initial encounter; E86.1 Hypovolemia; Z79.82 Long term (current) use of aspirin; Z79.899 Other long term (current) drug therapy
CPT/HCPCS: 36415; 80048; 80053; 81003; 83935; 84295; 84300; 85025; 93005; 96360; 96361; 99285

== ENCOUNTER 2025-03-30 11:03 | Emergency (ER) | payer MEDICARE ==
[2025-03-30 11:17] VITALS: BP 160/83; PULSE 71; RESP 20; TEMP 98.1
[2025-03-30 11:40] LABS: Basophils # (A) 0.10 10*3/uL (0.00-0.10); Basophils % (A) 0.7 %; Eosinophils # (A) 0.17 10*3/uL (0.04-0.35); Eosinophils % (A) 1.2 %; HCT 38.7 % (37.2-46.3); HGB 13.3 g/dL (12.0-15.0); Lymphocytes # (A) 1.38 10*3/uL (0.90-5.00); Lymphocytes % (A) 9.6 %; MCH 29.4 pg (27.0-32.0); MCHC 34.4 g/dL (32.0-37.0); Monocytes # (A) 0.80 10*3/uL (0.20-1.00); Monocytes % (A) 5.6 %; Neutrophils # (A) 11.82 10*3/uL (1.80-7.70); Neutrophils % (A) 82.6 %; Platelet Count 417 10*3/uL (140-440); RBC 4.53 10*6/uL (4.10-5.20); RDW 13.1 % (11.5-14.5); WBC 14.31 10*3/uL (4.50-10.00)
--- NOTE | 2025-03-30 11:40 | ED ---
Abdominal Pain HPI - General Chief Complaint: Abdominal Pain Stated Complaint: Pelvic pain, nausea Time Seen by Provider: 03/30/25 11:39 Source: patient, RN notes reviewed Mode of arrival: ambulatory Limitations: no limitations - History of Present Illness Initial Comments: Quick note: 75-year-old female presented the ER for evaluation of abdominal pain . Patient states approximately 2 months ago she was admitted at [facility] for acute diverticulitis with abscess. Patient had abscess drained. She reports around 3:30 AM today she started to experience similar lower abdominal pain. She mitts nausea no vomiting. No fevers. No diarrhea. - Related Data Home Medications Medication Instructions Recorded Confirmed Aspirin EC [Ecotrin Low Dose] 81 mg PO DAILY 04/29/18 02/25/25 Atorvastatin [Lipitor] 20 mg PO HS 02/25/25 02/25/25 Cholecalciferol (Vitamin D3) 50 mcg PO HS 02/25/25 02/25/25 [Vitamin D3 (50 Mcg = 2000 Iu)] Ezetimibe [Zetia] 10 mg PO HS 02/25/25 02/25/25 Folic Acid 1 mg PO DAILY 02/25/25 02/25/25 Losartan [Cozaar] 25 mg PO DAILY 02/25/25 02/25/25 atenoloL [Tenormin] 25 mg PO DAILY 02/25/25 02/25/25 Allergies Allergy/AdvReac Type Severity Reaction Status Date / Time Sulfa (Sulfonamide Allergy Rash/Hives Verified 02/25/25 20:43 Antibiotics) RUBBER Allergy Rash/Hives Uncoded 04/29/18 20:52 Review of Systems ROS Statement: Those systems with pertinent positive or pertinent negative responses have been documented in the HPI. ROS Other: All systems not noted in ROS Statement are negative. Past Medical History Past Medical History: Diabetes Mellitus, Hyperlipidemia, Hypertension Additional Past Medical History / Comment(s): type 2 diabetic, diverticulitis History of Any Multi-Drug Resistant Organisms: None Reported Past Surgical History: Appendectomy, Bladder Surgery, Cholecystectomy, Hysterectomy Additional Past Surgical History / Comment(s): x2 bladder suspensions Past Psychological History: No Psychological Hx Reported Smoking Status: Never smoker Past Alcohol Use History: Occasional Past Drug Use History: None Reported General Exam - General Exam Comments Initial Comments: Visual Physical Exam Vital signs reviewed General: Well-appearing, nontoxic, no acute distress. Head: Normocephalic, atraumatic Eyes: PERRLA, EOMI ENT: Airway patent Chest: Nonlabored breathing Skin: No visual rash, normal skin tone Neuro: Alert and oriented 3 Musculoskeletal: No gross abnormalities Limitations: no limitations Course Vital Signs 03/30/25 11:14 Temperature 98.1 F Pulse Rate 71 Respiratory 20 Rate Blood Pressure 160/83 O2 Sat by Pulse 98 Oximetry Medical Decision Making - Medical Decision Making I performed the quick note portion of this chart. Electronically signed by Jacy Toscano PA-C Workup initiated in triage given bed availability in emergency department. Patient eloped from the ER prior to completion of medical treatment. Patient left AGAINST MEDICAL ADVICE. - Lab Data Result diagrams: 03/30/25 11:26 03/30/25 11:26 Lab Results 03/30/25 03/30/25 03/30/25 Range/Units 11:26 11:26 11:26 WBC 14.31 H (4.50-10.00) 10*3/uL RBC 4.53 (4.10-5.20) 10*6/uL Hgb 13.3 (12.0-15.0) g/dL Hct 38.7 (37.2-46.3) % MCV 85.4 D (80.0-97.0) fL MCH 29.4 (27.0-32.0) pg MCHC 34.4 (32.0-37.0) g/dL Plt Count 417 (140-440) 10*3/uL MPV 10.1 (9.5-12.2) fL Immature Gran % (Auto) 0.3 % Neutrophils % 82.6 % Lymphocytes % 9.6 % Monocytes % 5.6 % Eosinophils % 1.2 % Basophils % 0.7 % Immature Gran # 0.04 (0.00-0.04) 10*3/uL Neutrophils # 11.82 H (1.80-7.70) 10*3/uL Lymphocytes # 1.38 (0.90-5.00) 10*3/uL Monocytes # 0.80 (0.20-1.00) 10*3/uL Eosinophils # 0.17 (0.04-0.35) 10*3/uL Basophils # 0.10 (0.00-0.10) 10*3/uL Sodium 139 (137-145) mmol/L Potassium 4.7 (3.5-5.1) mmol/L Chloride 100 (98-107) mmol/L Carbon Dioxide 25 (22-30) mmol/L Anion Gap 14 mmol/L BUN 24 H (7-17) mg/dL Creatinine 1.19 H (0.52-1.04) mg/dL Est GFR (CKD-EPI)AfAm 52 (>60 ml/min/1.73 sqM) Est GFR (CKD-EPI)NonAf 45 (>60 ml/min/1.73 sqM) Glucose 138 H (74-99) mg/dL Plasma Lactic Acid Jimbo 1.1 (0.7-2.0) mmol/L Calcium 10.5 H (8.4-10.2) mg/dL Total Bilirubin 1.2 (0.2-1.3) mg/dL AST 25 (14-36) U/L ALT 16 (4-34) U/L Alkaline Phosphatase 101 (38-126) U/L Total Protein 7.4 (6.3-8.2) g/dL Albumin 4.6 (3.5-5.0) g/dL Amylase 90 (30-110) U/L Lipase 108 (23-300) U/L Disposition Clinical Impression: Left against medical advice Disposition: LEFT AGAINST MEDICAL ADVICE Condition: Undetermined Referrals: Ana Stein MD [Primary Care Provider] - 1-2 days Time of Disposition: 06:45
[2025-03-30 11:45] LABS: MCV 85.4 fL (80.0-97.0)
[2025-03-30 11:50] LABS: ALT 16 U/L (4-34); AST 25 U/L (14-36); African American GFR (CKD) 52 (>60 ml/min/1.73 sqM); Albumin 4.6 g/dL (3.5-5.0); Alkaline Phosphatase 101 U/L (38-126); Amylase 90 U/L (30-110); Anion Gap 14 mmol/L; Blood Urea Nitrogen 24 mg/dL (7-17); Calcium 10.5 mg/dL (8.4-10.2); Carbon Dioxide 25 mmol/L (22-30); Chloride 100 mmol/L (98-107); Glucose 138 mg/dL (74-99); Lipase 108 U/L (23-300); Non-African American GFR(CKD) 45 (>60 ml/min/1.73 sqM); Potassium 4.7 mmol/L (3.5-5.1); Sodium 139 mmol/L (137-145); Total Protein 7.4 g/dL (6.3-8.2)
--- NOTE | 2025-03-30 13:29 | CT ---
EXAMINATION TYPE: CT abdomen pelvis w con DATE OF EXAM: 03/30/2025 12:38 PM COMPARISON: CT abdomen pelvis most recent from 09/09/2023 CLINICAL INDICATION: Female, 75 years old with history of lower abd pain hx diverticulitis; Lower abd pain, hx of diverticulitis. Recent abscess drained x6wks by Dr. Stein TECHNIQUE: Axial CT abdomen pelvis w con;Sagittal and coronal reformats were created on a separate w orkstation. Contrast used:80 ml mL of Isovue 300 with IV Contrast, (none if empty) Oral contrast used: without Oral Contrast (none if empty) CT DLP: 714.7 mGycm, Automated exposure control for dose reduction was used. FINDINGS: LOWER CHEST: Unremarkable ABDOMEN LIVER: Unremarkable GALLBLADDER AND BILE DUCTS: Unremarkable. PANCREAS: Unremarkable. SPLEEN: Unremarkable. ADRENAL GLANDS: Unremarkable. KIDNEYS AND URETERS: No evidence of hydronephrosis or obstructing renal calculus. The ureters are unr emarkable. PELVIS BLADDER: No evidence for wall thickening or mass given limitations of exam. REPRODUCTIVE: The uterus is surgically absent. ABDOMEN & PELVIS STOMACH AND BOWEL: There are colonic diverticula present, one of which has adjacent fat stranding ct nges. No organizing fluid collection or evidence of pneumoperitoneum. There is an area of cord inferi or descending colon with intramural fluid collection measuring 20 x 17 mm separate from the right of acute inflammation. No evidence of bowel obstruction. PERITONEUM/RETROPERITONEUM: No evidence of pneumoperitoneum or free fluid. VASCULATURE: No evidence of aortic aneurysm. MUSCULOSKELETAL: No acute osseous abnormalities. Mild disc degeneration changes are present throughou t the thoracolumbar spine. Grade 1 anterolisthesis of L4 and L5. LYMPH NODES: No gross evidence for lymphadenopathy. SOFT TISSUE/ABDOMINAL WALL: Fat-containing umbilical hernia. Ventral wall surgical clips noted. IMPRESSION: Acute uncomplicated descending colon diverticulitis. No evidence for organizing fluid collection of t he area of active inflammation in the area of inflammation this exam. There is more inferior medial f luid collection within the wall of the sigmoid colon/descending colon junction measuring 28 x 17 mm L ikely sequela of prior diverticulitis. [facility], , 03/30/2025 1:26 PM
== END 2025-03-30 14:29 | disposition left against medical advice (07) ==
LOC: EC 11:03
DX: R10.2 Pelvic and perineal pain (principal); Z53.29 Procedure and treatment not carried out because of patient's decision for other reasons; Z88.2 Allergy status to sulfonamides; Z88.8 Allergy status to other drugs, medicaments and biological substances
CPT/HCPCS: 36415; 93005; 80053; 82150; 83605; 83690; 85025; 74177; 99284; Q9967